=== PATIENT | female | born 1950 | race Caucasian/White ===

== ENCOUNTER → 2016-06-04 13:13 | Outpatient (CLI) | payer MEDICARE, OTHER | END | disposition home or self-care (01) | LOC: D.MRI 13:13 | DX: M25.511 Pain in right shoulder (principal) ==

== ENCOUNTER → 2016-06-28 16:32 | Outpatient (CLI) | payer MEDICARE, OTHER | END | disposition home or self-care (01) | LOC: D.MAMMO 09:45 | DX: Z12.31 Encounter for screening mammogram for malignant neoplasm of breast (principal) ==

== ENCOUNTER 2016-09-13 06:29 | Day surgery (SDC) | payer MEDICARE, OTHER ==
[2016-09-12 11:51] LABS: HEMATOCRIT 40.1 % (36.0-48.0); HEMOGLOBIN 13.5 g/dL (12-16); MCH 28.5 pg (26.0-34.0); MCHC 33.7 g/dL (31.0-37.0); MCV 84.6 fL (80.0-100.0); MEAN PLATELET VOLUME 10.9 fL (7.4-10.4); RBC 4.74 10x6/uL (4.00-5.40); RDW 12.7 % (11.5-14.5); WBC 10.6 10x3/uL (4.8-10.8)
[~2016-09-13] VITALS: Ht 170.2 cm; Wt 74.8 kg
--- NOTE | ~2016-09-13 | OP ---
PATIENT NAME: SAROJ LAINEZ MEDICAL RECORD: [id number] :50 LOCATION:[facility] ADMISSION DATE: SURGEON: KECIA DE LA TORRE, AVTAR BOCANEGRA DATE OF OPERATION: 09/13/2016 Orthopedic Surgery Operative Note PREOPERATIVE DIAGNOSES: 1. Right shoulder with rotator cuff tear 2. Right shoulder severe tendinitis. 3. Right shoulder acromioclavicular arthritis. 4. Right shoulder impingement syndrome. PROCEDURES: 1. Arthroscopic rotator cuff repair of the right shoulder. 2. Arthroscopic biceps tenotomy in the right shoulder. 3. Arthroscopic distal clavicle excision done through separate incision -- 1 cm. 4. Arthroscopic subacromial decompression with acromioplasty and bursectomy. SURGEON: Avtar Huff MD ANESTHESIA: General. INTRAOPERATIVE COMPLICATIONS: None. SUMMARY OF PATHOLOGIC FINDINGS: Consistent with the preoperative diagnosis, the patient had the above findings and required the above procedures as predicted based on the patient's MRI. OPERATIVE SUMMARY IN DETAIL: After obtaining the appropriate preoperative orthopedic surgery consents as well as anesthetic consultation, evaluation and clearance, the patient was brought to the operating room and placed on the operating table in supine position. After general laryngeal mask was administered, the patient was placed in left lateral decubitus position. All pressure points were well padded to include down leg peroneal pad as well as axillary roll. The patient was held firmly to the operating table using the vacuum pack suction system. Right upper extremity and shoulder were then prepped and draped in routine sterile fashion. The arm was held in the Arthrex traction boom at 30 degrees of forward flexion, 30 degrees of abduction with 10 pounds of traction laterally. Arthroscopy was established in the glenohumeral joint from a posterior portal. Anterior portal was established the anterior safe interval. Transarthroscopic portal was off, so a transrotator cuff tear portal was also created. Attention was first turned to biceps tenotomy. Surface tissue ablation system was used to incise the biceps tendon that had severe biceps tendinitis starting at the groove and over into the groove as far as could be seen by the scope. Having completed the biceps tenotomy, arthroscopic resector was utilized to decorticate the supraspinatus tendinous footprint as well as denude the supraspinatus tendon edge for reapproximation. Attention was then turned to the subacromial space. The [place] tissue ablation system was utilized to denude the undersurface of the acromion of all soft tissue elements. A 5-0 barrel joseph was used to perform acromioplasty to the level of the acromioclavicular joint. Next, through a separate anterior arthroscopic portal under direct arthroscopic visualization, the distal clavicle excision was performed -- 1 cm using the arthroscopic joseph. Lastly, the rotator OPERATIVE REPORT [id number] SAROJ LAINEZ cuff footprint was further decorticated further laterally, then two #2 FiberTapes were placed in an inverted mattress style fashion and anchored laterally with a 5.0 [place] each. Having completed this, arthroscopy portals were closed in routine interrupted fashion using 4-0 Prolene. Sterile dressings were applied. The patient was awakened, taken to recovery room in stable condition. All final needle and sponge counts were correct. TRANSINT:[id number] Voice Confirmation ID: [id number] DOCUMENT ID: [id number] KECIA DE LA TORRE, AVTAR BOCANEGRA CC: [id number] DICTATION DATE: 09/17/16 161 THERAPEUTIC SUPPORT STAFF: 09/17/16 2314 [facility] 09/13/[address] [facility] [address] [place] [address]
[~2016-09-13 06:29] MED LIST: CATAPRES0.1 MG PO; HCTZ25 MG PO; NORVASC5 MG PO; PHENERGAN25 M1 PO; SYNTHROID75 MCG PO; TENORMIN50 MG PO
[2016-09-13 10:33] VITALS: BP 145/77; Ht 170.2 cm; Wt 74.8 kg
[2016-09-13] MEDS ORDERED: HYDROCODONE-APA1 TAB PO (14:00)
--- NOTE | 2016-09-13 16:38 | NUR ---
1515 IV DC WITH CATHER TIP INTACT
== END 2016-09-13 16:00 | disposition home or self-care (01) ==
LOC: D.OPS 06:29 → D.PAN 11:00 → D.OPS 12:00 → D.PAN 12:30 → D.OPS 12:30
PROVIDERS: Anesthesiology
DX: M75.101 Unspecified rotator cuff tear or rupture of right shoulder, not specified as traumatic (principal); M75.21 Bicipital tendinitis, right shoulder; M75.41 Impingement syndrome of right shoulder; M25.511 Pain in right shoulder; I10 Essential (primary) hypertension; E03.9 Hypothyroidism, unspecified; Z01.812 Encounter for preprocedural laboratory examination

== ENCOUNTER → 2017-09-27 10:15 | Outpatient (CLI) | payer MEDICARE, OTHER ==
[2016-09-13 10:33] VITALS: BMI 25.9
[~2017-09-27 10:15] MED LIST changes: +HYDROCODONE-APA1 TAB PO
== END ==
LOC: D.MAMMO 09-18 13:00
DX: Z12.31 Encounter for screening mammogram for malignant neoplasm of breast (principal)

== ENCOUNTER 2018-10-21 14:00 | Outpatient (CLI) | payer MEDICARE ==
[2016-09-13 10:33] VITALS: BMI 25.9
== END 2018-10-21 14:30 | disposition home or self-care (01) ==
LOC: D.MAMMO 14:00
PROVIDERS: ATTEND Family Medicine
DX: Z12.31 Encounter for screening mammogram for malignant neoplasm of breast (principal)

== ENCOUNTER → 2018-10-29 09:30 | Outpatient (CLI) | payer BC, MEDICARE ==
[2016-09-13 10:33] VITALS: BMI 25.9
== END | disposition home or self-care (01) ==
LOC: D.MAMMO 09:30
PROVIDERS: ATTEND Family Medicine
DX: R92.8 Other abnormal and inconclusive findings on diagnostic imaging of breast (principal)

== ENCOUNTER → 2019-12-03 09:48 | Outpatient (CLI) | payer MEDICARE, BC ==
[2016-09-13 10:33] VITALS: BMI 25.9
== END | disposition home or self-care (01) ==
LOC: D.MAMMO 09:48
PROVIDERS: ATTEND Family Medicine
DX: Z12.31 Encounter for screening mammogram for malignant neoplasm of breast (principal)